=== PATIENT | male | born 1995 | race African-American/Black ===

== ENCOUNTER 2019-06-08 12:51 | Emergency (ER) | payer SELFPAY ==
[~2019-06-08] VITALS: Ht 172.7 cm; Wt 72.6 kg
[2019-06-08 13:29] VITALS: BP 115/76
--- NOTE | 2019-06-08 13:56 | Emergency Room Report ---
History of Present Illness General Chief Complaint: Flu Like Symptoms Source: Patient Present Illness HPI 23-year-old male presents to the emergency department complaining of cough, 7 out of 10 severity sore throat, nasal congestion, rhinorrhea is 1 week in addition to new onset of a rash on his upper chest since this a.m. He reports being vaccinated he is not sure if he has ever had the chickenpox in the past. He denies neck pain/stiffness, headache, photophobia. Denies itching. Pt. denies swollen tender lymph nodes. Denies lesions/rashes elsewhere on the body. Denies new medications or body washes or creams. Denies swelling of the lips, tongue , throat or airway. Denies wheezing, or shortness of breath. Patient reports on several occasions that when coughing he felt a bump in the lower left quadrant of his abdomen. Patient denies symptoms at this time. Denies recent travel, recent illness or ill contacts. denies blisters, oral lesions, or sloughing of the skin. Allergies: Coded Allergies: No Known Allergies (Unverified , 06/08/19) Patient History Past Medical History: see triage record Past Surgical History: none Pertinent Family History: none Immunizations: UTD Reviewed Nursing Documentation: PMH: Agreed; PSxH: Agreed Nursing Documentation-PMH Past Medical History: No Stated History Review of Systems All Other Systems: negative except mentioned in HPI Physical Exam Vital Signs Date Time Temp Pulse Resp B/P (MAP) Pulse Ox O2 Delivery O2 Flow Rate FiO2 06/08/19 13:06 98.1 72 19 115/76 (89) 97 Room Air Sp02 EP Interpretation: reviewed, normal General Appearance: no apparent distress, alert, GCS 15, non-toxic Head: normocephalic, atraumatic Eyes: bilateral eye normal inspection, bilateral eye PERRL ENT: hearing grossly normal, normal voice, TMs + canals normal, uvula midline, moist mucus membranes, nasal congestion, pharyngeal erythema Neck: full range of motion, no meningismus, no bony tend Respiratory: chest non-tender, lungs clear, normal breath sounds, no respiratory distress, no accessory muscle use, no wheezing, speaking full sentences Cardiovascular #1: regular rate, rhythm Gastrointestinal: non tender, soft, no hernia, other - No palpable lump/mass Rectal: deferred Musculoskeletal: back normal, normal range of motion, gait/station normal, non- tender Neurologic: alert, motor strength/tone normal, oriented x3, sensory intact, responsive, speech normal Psychiatric: judgement/insight normal Skin: rash - Diffuse rash consisting of discrete erythematous papules on the anterior chest. No blisters no prominent vesicles. No sloughing of the skin. Lymphatic: no adenopathy Medical Decision Making PA Attestation Dr. Graham is my supervising physician whom pt. management has been discussed with. Diagnostic Impression: Primary Impression: Acute viral syndrome Additional Impression: Viral exanthem, unspecified ER Course 23-year-old male presents to the emergency department complaining of cough, 7 out of 10 severity sore throat, nasal congestion, rhinorrhea is 1 week in addition to new onset of a rash on his upper chest since this a.m. He reports being vaccinated he is not sure if he has ever had the chickenpox in the past. He denies neck pain/stiffness, headache, photophobia. Denies itching. Pt. denies swollen tender lymph nodes. Denies lesions/rashes elsewhere on the body. Denies new medications or body washes or creams. Denies swelling of the lips, tongue , throat or airway. Denies wheezing, or shortness of breath. Patient reports on several occasions that when coughing he felt a bump in the lower left quadrant of his abdomen. Patient denies symptoms at this time. Denies recent travel, recent illness or ill contacts. denies blisters, oral lesions, or sloughing of the skin. Ddx considered but are not limited to URI, pneumonia, PE, strep pharyngitis, meningitis, influenza, OM/OE just to name a few, viral exanthem, allergic reaction, folliculitis, hernia, lymph node just to name a few. Vital signs: Pt. is afebrile, the remaining VS are WNL H&PE are most consistent with Viral Syndrome suspicious for Influenza will treat clinically - no meningeal signs, Lungs are clear and oropharynx is not involved, no evidence of bacterial infection at this time. NO evidence of incarcerated or strangulated hernia. pt. unable to reproduce symptom. ORDERS: none required at this time, the diagnosis is clinical ED INTERVENTIONS: None required at this time. --PT. EDUCATION: --I discussed with this patient that I will be prescribing Tamiflu which is an antiviral. This medication is not always covered by insurance and is not always available at pharmacies. I educated patient that this medication has been shown to reduce symptoms by 1 day, and if unable to obtain there is no alternative, and to continue conservative treatment. DISCHARGE: At this time pt. is stable for d/c to home. Will provide printed patient care instructions, and any necessary prescriptions. Care plan and follow up instructions have been discussed with the patient prior to discharge. Last Vital Signs Date Time Temp Pulse Resp B/P (MAP) Pulse Ox O2 Delivery O2 Flow Rate FiO2 06/08/19 13:29 98.1 85 19 115/76 97 Room Air Status: improved Disposition: HOME, SELF-CARE Condition: Stable Scripts Pseudoephedrine Hcl* (NEXAFED*) 30 Mg Tablet 30 MG ORAL Q6H PRN for congestion, #30 TAB Prov: Zulay Andrea 06/08/19 Acetaminophen* (TYLENOL EXTRA STRENGTH*) 500 Mg Tablet 500 MG ORAL Q6H PRN for Mild Pain/Temp > 100.5, #30 TAB 0 Refills Prov: Zulay Andrea 06/08/19 Codeine/Promethazine Hcl* (PROMETHAZINE-CODEINE SYRUP*) 118 Ml Syrup 5 ML ORAL Q6H PRN for For Cough, #120 ML 0 Refills Prov: Zulay Andrea 06/08/19 Referrals: NOT CHOSEN IPA/MD,REFERRING (PCP) Patient Instructions: Upper Respiratory Infection, Adult, [id number] Additional Instructions: Take medications as directed to manage your viral symptoms. There is no specific treatment for your viral syndrome other than symptom management. Stay away from Elderly and infants until you are fever and rash free. Follow up with a Primary Care Provider in 3-5 days, even if your symptoms have resolved. --Please review list of primary care clinics, if you do not already have a primary care provider Return sooner to ED if new symptoms occur, or current symptoms become worse. Do not drink alcohol, drive, or operate heavy machinery while taking Cough Syrup as this may cause drowsiness. - Please note that this Emergency Department Report was dictated using [employer] associate technology software, occasionally this can lead to erroneous entry secondary to interpretation by the dictation equipment. Zulay Andrea Jun 08, 2019 13:56
[2019-06-08] MEDS ORDERED: PROMETHAZINE-C118 M1 ORAL (13:58)
[2019-06-08] MEDS ORDERED: TYLENOL EXTRA500 MG ORAL (13:58)
[2019-06-08] MEDS ORDERED: NEXAFED30 MG ORAL (13:58)
[2019-06-08 14:15] VITALS: BP 114/74
== END 2019-06-08 14:16 | disposition home or self-care (01) ==
LOC: EMR 13:38
DX: B34.9 Viral infection, unspecified (principal); B09 Unspecified viral infection characterized by skin and mucous membrane lesions
CPT/HCPCS: 99282